=== PATIENT | male | born 1985 | race Two or more races ===

== ENCOUNTER 2017-10-25 20:56 | Emergency (ER) | payer SELFPAY | END 2017-10-25 23:20 | disposition left against medical advice (07) | LOC: ER 20:56 | DX: R10.9 Unspecified abdominal pain (principal); Z53.21 Procedure and treatment not carried out due to patient leaving prior to being seen by health care provider ==

== ENCOUNTER 2019-10-22 21:32 | Emergency (ER) | payer SELFPAY ==
[~2019-10-22] VITALS: Ht 165.1 cm; Wt 83.2 kg
[2019-10-22 21:38] VITALS: BP 132/95
--- NOTE | 2019-10-22 22:32 | RAD ---
Three-view right knee HISTORY: Pain AP lateral oblique views The patella is high riding. There is soft tissue edema anteriorly. The visualized osseous structures appear normal. IMPRESSION: High riding patella and soft tissue edema anteriorly. Correlate for possible patellar tendon injury. No acute bony abnormality identified. Electronically signed by: Theo Hinds III, MD (10/22/2019 10:29 PM) [id number]
[2019-10-22 22:33] LABS: BASO % 1 % (0-3); EOS # 0.1 x10^3/uL (0.0-0.7); EOS % 2 % (0-3); HEMATOCRIT 42.8 % (39.0-53.0); HEMOGLOBIN 15.2 g/dL (13.0-17.5); LYMPH # 1.3 x10^3/uL (1.0-4.8); LYMPH % 20 % (24-48); MEAN CORPUSCULAR HEMOGLOBIN 31 pg (25-35); MEAN CORPUSCULAR HGB CONC 36 g/dL (31-37); MEAN CORPUSCULAR VOLUME 87 fL (79-100); MONO # 0.4 x10^3/uL (0.0-1.1); MONO % 6 % (0-9); NEUT # 4.6 x10^3/uL (1.8-7.7); NEUT % 72 % (31-73); PLATELET COUNT 136 x10^3/uL (140-400); RED BLOOD COUNT 4.94 x10^6/uL (4.30-5.70); RED CELL DISTRIBUTION WIDTH 12.8 % (11.5-14.5); WHITE BLOOD COUNT 6.3 x10^3/uL (4.0-11.0)
[2019-10-22 22:44] LABS: CALCIUM 8.6 mg/dL (8.5-10.1); CREATININE 0.9 mg/dL (0.7-1.3); POTASSIUM 4.4 mmol/L (3.5-5.1)
[2019-10-22 22:47] LABS: ALBUMIN/GLOBULIN RATIO 1.2 (1.0-1.7); C-REACTIVE PROTEIN 5.3 mg/L (0-3.3); TOTAL BILIRUBIN 0.5 mg/dL (0.2-1.0); TOTAL PROTEIN 7.4 g/dL (6.4-8.2)
--- NOTE | 2019-10-22 22:55 | PHYS DOC ---
Past Medical History Past Medical History: No Pertinent History Past Surgical History: No Surgical History Smoking Status: Never Smoker Alcohol Use: Occasionally General Adult EDM: Chief Complaint: LOWER EXT PAIN HPI: HPI: Patient is a 33 year old male presenting to the ED with a chief complaint of tenderness to his right knee. Patient denies obvious injury. Patient states that tonight he put ice on his right knee due to the pain. Patient is able to have normal range of motion. Patient does not complain of any pain when he puts weight on his right knee. Patient does complain of mild warmth to the knee area. Patient denies fevers, chills, nausea, vomiting, chest pain, shortness of breath. Review of Systems: Review of Systems: Constitutional: Denies fever or chills. [] Eyes: Denies change in visual acuity. [] HENT: Denies nasal congestion or sore throat. [] Respiratory: Denies cough or shortness of breath. [] Cardiovascular: Denies chest pain or edema. [] GI: Denies abdominal pain, nausea, vomiting, bloody stools or diarrhea. [] Musculoskeletal: Complains of warmth to his right knee. [] Neurologic: Denies headache, focal weakness or sensory changes. [] Heart Score: Risk Factors: Risk Factors: DM, Current or recent (<one month) smoker, HTN, HLP, family history of CAD, obesity. Risk Scores: Score 0 - 3: 2.5% MACE over next 6 weeks - Discharge Home Score 4 - 6: 20.3% MACE over next 6 weeks - Admit for Clinical Observation Score 7 - 10: 72.7% MACE over next 6 weeks - Early Invasive Strategies Allergies: Allergies: Allergies Coded Allergies Type Severity Reaction Last Updated Verified No Known Drug Allergies 10/22/19 No Physical Exam: PE: Constitutional: Well developed, well nourished, no acute distress, non-toxic ap pearance. [] HENT: Normocephalic, atraumatic Eyes: EOMI Neck: Normal range of motion, Supple Respiratory: No respiratory distress Extremities: No tenderness, ROM intact, mild erythema and warmth to the right knee, neurovascularly intact in the right lower extremity Neurologic: Alert and oriented X 3 Current Patient Data: Labs: Laboratory Tests Test 10/22/19 22:23 White Blood Count 6.3 x10^3/uL (4.0-11.0) Red Blood Count 4.94 x10^6/uL (4.30-5.70) Hemoglobin 15.2 g/dL (13.0-17.5) Hematocrit 42.8 % (39.0-53.0) Mean Corpuscular Volume 87 fL (79-100) Mean Corpuscular Hemoglobin 31 pg (25-35) Mean Corpuscular Hemoglobin Concent 36 g/dL (31-37) Red Cell Distribution Width 12.8 % (11.5-14.5) Platelet Count 136 x10^3/uL (140-400) L Neutrophils (%) (Auto) 72 % (31-73) Lymphocytes (%) (Auto) 20 % (24-48) L Monocytes (%) (Auto) 6 % (0-9) Eosinophils (%) (Auto) 2 % (0-3) Basophils (%) (Auto) 1 % (0-3) Neutrophils # (Auto) 4.6 x10^3/uL (1.8-7.7) Lymphocytes # (Auto) 1.3 x10^3/uL (1.0-4.8) Monocytes # (Auto) 0.4 x10^3/uL (0.0-1.1) Eosinophils # (Auto) 0.1 x10^3/uL (0.0-0.7) Basophils # (Auto) 0.0 x10^3/uL (0.0-0.2) Sodium Level 142 mmol/L (136-145) Potassium Level 4.4 mmol/L (3.5-5.1) Chloride Level 104 mmol/L (98-107) Carbon Dioxide Level 27 mmol/L (21-32) Anion Gap 11 (6-14) Blood Urea Nitrogen 14 mg/dL (8-26) Creatinine 0.9 mg/dL (0.7-1.3) Estimated GFR (Cockcroft-Gault) 96.0 BUN/Creatinine Ratio 16 (6-20) Glucose Level 150 mg/dL (70-99) H Calcium Level 8.6 mg/dL (8.5-10.1) Total Bilirubin 0.5 mg/dL (0.2-1.0) Aspartate Amino Transferase (AST) 27 U/L (15-37) Alanine Aminotransferase (ALT) 34 U/L (16-63) Alkaline Phosphatase 74 U/L (46-116) C-Reactive Protein, Quantitative 5.3 mg/L (0-3.3) H Total Protein 7.4 g/dL (6.4-8.2) Albumin 4.0 g/dL (3.4-5.0) Albumin/Globulin Ratio 1.2 (1.0-1.7) Laboratory Tests 10/22/19 22:23 Laboratory Tests 10/22/19 22:23 Vital Signs: Vital Signs Date Time Temp Pulse Resp B/P (MAP) Pulse Ox O2 Delivery O2 Flow Rate FiO2 10/22/19 21:38 98.2 93 18 132/95 (107) 99 Room Air 98.2 EKG: EKG: [] Radiology/Procedures: Radiology/Procedures: [] Impression: RIght Knee Xray IMPRESSION: High riding patella and soft tissue edema anteriorly. Correlate for possible patellar tendon injury. No acute bony abnormality identified. Course & Med Decision Making: Course & Med Decision Making Pertinent Labs and Imaging studies reviewed. (See chart for details) X-ray shows possible injury to the patella tendon. Labs do not show leukocytosis. I discussed results and plan of care with patient. Patient to call orthopedic surgeon in the morning. Discussed results and plan of care with patient. Patient is instructed to follow up with PCP in one to 2 days. Appropriate discharge instructions given to patient to return to the ED or to seek immediate medical evaluation. Patient is instructed to return to the ED if symptoms worsen or if any concerns. Dragon Disclaimer: Dragon Disclaimer: This electronic medical record was generated, in whole or in part, using a voice recognition dictation system. Departure Departure Impression: Primary Impression: Knee bursitis Disposition: 01 HOME, SELF-CARE Condition: STABLE Referrals: NO PCP (PCP) BELKYS KIM II, MD Please call tomorrow morning Patient Instructions: Bursitis, [id number], Knee - Cartilage (Meniscus) Injury, Knee - Meniscus Injury, Arthroscopy, Care After Additional Instructions: Please follow-up with orthopedic surgeon tomorrow morning. Please return to ED if symptoms worsen or if any concerns. Please follow-up with PCP in 1 to 2 days. Justicifation of Admission Dx: Justifications for Admission: Justification of Admission Dx: No ELIZABETH LYNN DO Oct 22, 2019 22:55
== END 2019-10-22 23:42 | disposition home or self-care (01) ==
LOC: ER 21:32
DX: M70.51 Other bursitis of knee, right knee (principal); L53.9 Erythematous condition, unspecified
CPT/HCPCS: 36415; 73562; 80053; 85025; 86140; 99284

== ENCOUNTER 2020-09-20 22:17 | Emergency (ER) | payer SELFPAY ==
[~2020-09-20] VITALS: Ht 162.6 cm; Wt 82.0 kg
[2020-09-20 23:50] VITALS: BP 160/92
[2020-09-21] MEDS ORDERED: cefTRIAXone IV Push 1 GM VIAL. IVP ONE (00:15)
[2020-09-21] MEDS ORDERED: CEPH500T PO (00:19)
--- NOTE | 2020-09-21 00:19 | PHYS DOC ---
Past Medical History Past Medical History: No Pertinent History Past Surgical History: No Surgical History Smoking Status: Never Smoker Alcohol Use: Occasionally General Adult EDM: Chief Complaint: INSECT BITE HPI: HPI: Patient is a 34 year old 34-year-old male presents to the emergency department complaining of a insect bite to his left thigh. States he was bit last Saturday, and noticed it was getting redder and infected looking. Patient states he has had a medical evaluation of this bite, patient denies any recent fever or chills, denies headaches or other skin rashes. Denies chest pain or shortness of breath. Patient denies any visual disturbances or neurological deficits. Patient denies a surgical history, states he has no allergies to medications, states he takes no prescription medications at home. Patient states he does not smoke cigarettes, drinks alcohol occasionally on the weekends, does not use any illicit drugs. Review of Systems: Review of Systems: 14 body systems of review of systems have been reviewed. See HPI for pertinent positives and negative responses, otherwise all other systems are negative, nonpertinent or noncontributory. Heart Score: C/O Chest Pain: No Risk Factors: Risk Factors: DM, Current or recent (<one month) smoker, HTN, HLP, family history of CAD, obesity. Risk Scores: Score 0 - 3: 2.5% MACE over next 6 weeks - Discharge Home Score 4 - 6: 20.3% MACE over next 6 weeks - Admit for Clinical Observation Score 7 - 10: 72.7% MACE over next 6 weeks - Early Invasive Strategies Allergies: Allergies: Allergies Coded Allergies Type Severity Reaction Last Updated Verified No Known Drug Allergies 10/22/19 No Physical Exam: PE: Constitutional: Well developed, well nourished, no acute distress, non-toxic appearance. 34-year-old male no apparent distress. HENT: Normocephalic, atraumatic, bilateral external ears normal, oropharynx moist, no oral exudates, nose normal. Eyes: PERRLA, EOMI, conjunctiva normal, no discharge. Neck: Normal range of motion, no tenderness, supple, no stridor. No meningismus signs, no nuchal rigidity appreciated. Cardiovascular:Heart rate regular rhythm, no murmur Lungs & Thorax: Bilateral breath sounds clear to auscultation no adventitious lung sounds appreciated Abdomen: Bowel sounds normal, soft, no tenderness, no masses, no pulsatile masses. Skin: Warm, dry, no erythema, no rash. See extremity note. Back: No tenderness, no CVA tenderness. Extremities: No tenderness, no cyanosis, no clubbing, ROM intact, no edema. Except for left thigh, patient has 10 cm induration erythema with poor demarcated borders, central punctum eschar in appearance 1 cm in diameter. No drainage from central punctum. No loss of sensation distally, no swelling of left lower extremity, 2+ dorsalis pedis/posterior tibial pulse. Distal cap refill less than 2 seconds. Neurologic: Alert and oriented X 3, normal motor function, normal sensory function, no focal deficits noted. Psychologic: Affect normal, judgement normal, mood normal. EKG: EKG: [] Radiology/Procedures: Radiology/Procedures: [] Course & Med Decision Making: Course & Med Decision Making Pertinent Labs and Imaging studies reviewed. (See chart for details) 34-year-old male, vital signs reviewed, presents to the emergency department concerning an insect bite to his left thigh. Physical examination concerning for cellulitis of left thigh with central punctum most likely from insect bite. Will start IV Ancef 2 g. Discussed with patient admission to hospital, patient reports he would like to trial antibiotic treatment at home. Discussed with patient will draw yurok around induration area to monitor cellulitis progression. Patient states he will have his monitor the infected area as he cannot visualize it related to its placement on his left inner rear thigh. Discussed with patient will start on Keflex p.o. 4 times a day x7 days. Discussed with patient strict return to ER precautions if cellulitic infection worsening must return immediately for admission to hospital. The patient's tetanus status was brought up-to-date today in the emergency department. Patient gave verbal understanding of discharge home instructions, strict return to emergency department precautions and concerns, home antibiotic use, follow-up with primary care for wound recheck, patient had no further questions or concerns and was discharged home without incident. Manuelito Disclaimer: Manuelito Disclaimer: This electronic medical record was generated, in whole or in part, using a voice recognition dictation system. Departure Departure Impression: Primary Impression: Cellulitis of left lower limb Disposition: HOME / SELF CARE / HOMELESS Condition: GOOD Referrals: NO PCP (PCP) EUGENIA VENTURA MD Patient Instructions: Cellulitis Additional Instructions: You have been seen today for an insect bite of your left inner thigh. This insect bite has caused a cellulitis type infection. You were treated in the emergency department with IV antibiotics. I have prescribed for you oral antibiotics to take at home, you will take them 4 times a day for the next 7 days. We have marked the infected area with a pen, please have your monitor closely each day to ensure the infection is not worsening. If the infection is worsening, the oral antibiotics I have prescribed are not working, you must return to the emergency department immediately for admission to hospital. Please follow-up with a primary care physician for reevaluation of this infectious wound. If you are unable to secure an appointment with your own physician, I have provided you a referral physician to follow-up with. Please return to the emergency department for worsening symptoms or other concerns. EMERGENCY DEPARTMENT GENERAL DISCHARGE INSTRUCTIONS Thank you for coming to [facility] Emergency Department (ED) today and trusting us with you care. We trust that you had a positive experience in our Emergency Department. If you wish to speak to the department management, you may call the Director at [phone]. YOUR FOLLOW UP INSTRUCTIONS ARE FOLLOWS: 1. Do you have a private Doctor? If you do not have a private doctor, please ask for a resource list of physicians or clinics that may be able to assist you with follow up care. 2. The Emergency Physicain has interpreted your x-rays. The X-Ray specialist will also review them. If there is a change in the findings, you will be notified in 48 hours when at all possible. 3. A lab test or culture has been done, your results will be reviewed and you will be notified if you need a change in treatment. ADDITIONAL INSTRUCTIONS AND INFORMATION: 1. Your care today has been supervised by a physician who is specially trained in emergency care. Many problems require more than one evaluation for a complete diagnosis and treatment. We recommend that you schedule your follow up appointment as recommended to ensure complete treatment of you illness or injury. If you are unable to obtain follow up care and continue to have a problem, or if your condition worsens, we recommend that you return to the ED. 2. We are not able to safely determine your condition over the phone nor are we able to give sound medical advice over the phone. For these safety reasons, if you call for medical advice we will ask you to come to the ED for further evaluation. 3. If you have any questions regarding these discharge instructions please call the ED at [phone]. SAFETY INFORMATION: In the interest of safety, wellness, and injury prevention; we encourage you to wear your sealbelt, if you smoke; quite smoking, and we encourage family to use a protective helmet for bicycling and other sporting events that present an increased risk for head injury. IF YOUR SYMPTOMS WORSEN OR NEW SYMPTOMS DEVELOP, OR YOU HAVE CONCERNS ABOUT YOUR CONDITION; OR IF YOUR CONDITION WORSENS WHILE YOU ARE WAITING FOR YOUR FOLLOW UP APPOINTMENT; EITHER CONTACT YOUR PRIMARY CARE DOCTOR, THE PHYSICIAN WHOSE NAME AND NUMBER YOU WERE GIVEN, OR RETURN TO THE ED IMMEDIATELY. Scripts Cephalexin (CEPHALEXIN) 500 Mg Tablet 1 TAB PO QID for SKIN INFECTION for 7 Days, #28 TAB 0 Refills Prov: VIK GARCIA APRN 09/21/20 VIK GARCIA APRN September 21, 2020 00:19
[2020-09-21] MEDS ORDERED: DIPH,PERTUSS(ACELL),TET VAC/PF 0.5 ML SYRINGE. VAX IM ONE (00:30)
== END 2020-09-21 03:03 | disposition home or self-care (01) ==
LOC: ER 22:17
DX: S70.362A Insect bite (nonvenomous), left thigh, initial encounter (principal); L03.116 Cellulitis of left lower limb; W57.XXXA Bitten or stung by nonvenomous insect and other nonvenomous arthropods, initial encounter; Y93.89 Activity, other specified; Y92.89 Other specified places as the place of occurrence of the external cause; Y99.8 Other external cause status
CPT/HCPCS: 90471; 90715; 96365; 99285; J0690

== ENCOUNTER 2020-10-17 12:32 | Emergency (ER) | payer SELFPAY ==
[~2020-10-17] VITALS: Ht 162.6 cm; Wt 81.8 kg
[~2020-10-17 12:32] MED LIST: CEPH500T PO
[2020-10-17 13:50] VITALS: BP 143/91
--- NOTE | 2020-10-17 14:46 | RAD ---
XR HAND_RIGHT 3 VIEWS Clinical indications: Reason: RED/SWOLLEN x5DAY, LAC FROM GRANITE x4 WKS AGO / Spl. Instructions: / History: Findings: No acute fracture or dislocation or osteolytic process is evident. Impression: No acute osseous abnormality is evident. There is soft tissue swelling most prominent wi thin the webspace between the first and second metacarpal bones. No soft tissue air or radiopaque for eign body is evident. Electronically signed by: Humphrey Ahmadi MD (10/17/2020 2:43 PM) [id number]
--- NOTE | 2020-10-17 14:50 | ED.ADGEN ---
Past Medical History Past Medical History: No Pertinent History Past Surgical History: No Surgical History Smoking Status: Never Smoker Alcohol Use: Occasionally General Adult EDM: Chief Complaint: UPPER EXTREMITY INJURY HPI: HPI: Patient is a 34 year old male who presents emergency department with complaints of redness and swelling to his right hand for the last 4 to 5 days. He reports that about 4 months ago he had cut the hand in the same area while cutting something in it. Patient states that his last tetanus shot was less than 5 years ago. He denies any decreased sensation, fever, or drainage from the incision. He denies any decreased sensation, numbness, or tingling of the affected area. Patient states he is having difficulty bending and straightening his right index finger now he denies any pain radiating to his right wrist. He currently rates the pain a 6/10 on the pain scale, the pain increases to a 10 out of 10 with movement and palpation. Review of Systems: Review of Systems: Complete ROS is negative unless otherwise noted in HPI. Allergies: Allergies: Allergies Coded Allergies Type Severity Reaction Last Updated Verified No Known Drug Allergies 10/22/19 No Physical Exam: PE: See Above Constitutional: Well developed, well nourished, no acute distress, non-toxic appearance. [] HENT: Normocephalic, atraumatic, bilateral external ears normal, nose normal. [] Eyes: PERRLA, EOMI, conjunctiva normal, no discharge. [] Neck: Normal range of motion, no stridor. [] Cardiovascular:Heart rate regular rhythm Lungs & Thorax: Respirations even and unlabored, no retractions, no respiratory distress Skin: Warm, dry; indurated erythemic, warm skin to the right hand between the first and second digits affecting the volar and dorsal surfaces, no fluctuance, no visible pustule, healed laceration to the volar aspect in the same area. Extremities: Right hand: No bony tenderness to palpation or deformity, no cyanosis, ROM limited due to swelling, 2+ edema to the first and second digits Neurologic: Alert and oriented X 3, normal sensory, no focal deficits noted. [] Psychologic: Affect normal, judgement normal, mood normal. [] EKG: EKG: [] Heart Score: C/O Chest Pain: No Risk Scores: Score 0 - 3: 2.5% MACE over next 6 weeks - Discharge Home Score 4 - 6: 20.3% MACE over next 6 weeks - Admit for Clinical Observation Score 7 - 10: 72.7% MACE over next 6 weeks - Early Invasive Strategies Radiology/Procedures: Radiology/Procedures: PROCEDURE: HAND RIGHT 3V XR HAND_RIGHT 3 VIEWS Clinical indications: Reason: RED/SWOLLEN x5DAY, LAC FROM GRANITE x4 WKS AGO / Spl. Instructions: / History: Findings: No acute fracture or dislocation or osteolytic process is evident. Impression: No acute osseous abnormality is evident. There is soft tissue swelling most prominent within the webspace between the first and second metacarpal bones. No soft tissue air or radiopaque foreign body is evident. Electronically signed by: Humphrey Ahmadi MD (10/17/2020 2:43 PM) [id number] [] Course & Med Decision Making: Course & Med Decision Making Pertinent Labs and Imaging studies reviewed. (See chart for details) [] Dragon Disclaimer: Dragon Disclaimer: This electronic medical record was generated, in whole or in part, using a voice recognition dictation system. Departure Departure Impression: Primary Impression: Cellulitis of hand, right Additional Impression: Laceration of right hand with infection Disposition: HOME / SELF CARE / HOMELESS Condition: STABLE Referrals: NO PCP (PCP) Patient Instructions: Cellulitis, [id number] Additional Instructions: Fill the prescription(s) and use as directed. Continue taking 600 to 800 mg of ibuprofen every 6-8 hours as needed for pain. Apply warm, moist packs to the area to help decrease discomfort. Follow up with your primary care doctor or return to the ER in 48 hours to have wound rechecked. Return to the ER sooner if your symptoms worsen or fever develops. Scripts Hydrocodone Bit/Acetaminophen (HYDROCODONE-APAP 5-325 ) 1 Tab Tablet 1 TAB PO PRN Q6HRS PRN for PAIN for 3 Days, #10 TAB 0 Refills Prov: ALFRED JIMENEZ APRN 10/17/20 Sulfamethoxazole/Trimethoprim (BACTRIM DS TABLET) 1 Each Tablet 1 TAB PO BID for 10 Days, #20 TAB 0 Refills Prov: ALFRED JIMENEZ APRN 10/17/20 Cephalexin (CEPHALEXIN) 500 Mg Tablet 1 TAB PO QID, #40 TAB 0 Refills Prov: ALFRED JIMENEZ OFFICE SUPPORT SPECIALIST 10/17/20 Problem Qualifiers Additional Impression: Laceration of right hand with infection Encounter type: initial encounter Qualified Codes: S61.411A - Laceration without foreign body of right hand, initial encounter; L08.9 - Local infe ction of the skin and subcutaneous tissue, unspecified ALFRED JIMENEZ OFFICE SUPPORT SPECIALIST October 17, 2020 14:50
[2020-10-17] MEDS ORDERED: CEPH500T PO (15:15)
[2020-10-17] MEDS ORDERED: SULF1TAB24 PO (15:15)
[2020-10-17] MEDS ORDERED: HYDR-2761 PO (15:15)
== END 2020-10-17 15:26 | disposition home or self-care (01) ==
LOC: ER 12:32
DX: S61.411A Laceration without foreign body of right hand, initial encounter (principal); L03.113 Cellulitis of right upper limb; W26.8XXA Contact with other sharp object(s), not elsewhere classified, initial encounter; Y93.89 Activity, other specified; Y92.89 Other specified places as the place of occurrence of the external cause; Y99.8 Other external cause status
CPT/HCPCS: 73130; 99283

== ENCOUNTER 2020-12-31 10:42 | Inpatient (IN) | payer SELFPAY ==
[~2020-12-31] VITALS: Ht 162.6 cm; Wt 84.0 kg
[~2020-12-31 10:42] MED LIST changes: +HYDR-2761 PO; +SULF1TAB24 PO
--- NOTE | 2020-12-31 11:03 | PHYS DOC ---
Past Medical History Past Medical History: No Pertinent History Past Surgical History: No Surgical History Smoking Status: Never Smoker Alcohol Use: Occasionally General Adult EDM: Chief Complaint: LOWER EXTREMITY SWELLING HPI: HPI: Patient is a 35 year old male with no significant medical history who presents to the ED today complaining of redness and swelling on the left knee all the to left anterior leg, symptoms began yesterday. Patient denies any injuries. Denies any fever, denies any nausea vomiting. Review of Systems: Review of Systems: Constitutional: Denies fever or chills. [] Eyes: Denies change in visual acuity. [] HENT: Denies nasal congestion or sore throat. [] Respiratory: Denies cough or shortness of breath. [] Cardiovascular: Denies chest pain or edema. [] GI: Denies abdominal pain, nausea, vomiting, bloody stools or diarrhea. [] : Denies dysuria. [] Musculoskeletal: Denies back pain or joint pain. [] Integument: Reports left anterior leg redness and swelling Neurologic: Denies headache, focal weakness or sensory changes. [] Psychiatric: Denies depression or anxiety. [] Heart Score: C/O Chest Pain: N/A Risk Factors: Risk Factors: DM, Current or recent (<one month) smoker, HTN, HLP, family history of CAD, obesity. Risk Scores: Score 0 - 3: 2.5% MACE over next 6 weeks - Discharge Home Score 4 - 6: 20.3% MACE over next 6 weeks - Admit for Clinical Observation Score 7 - 10: 72.7% MACE over next 6 weeks - Early Invasive Strategies Allergies: Allergies: Allergies Coded Allergies Type Severity Reaction Last Updated Verified No Known Drug Allergies 10/22/19 No Physical Exam: PE: Constitutional: Well developed, well nourished, no acute distress, non-toxic appearance. [] HENT: Normocephalic, atraumatic, bilateral external ears normal, oropharynx moist, no oral exudates, nose normal. [] Eyes: PERRLA, EOMI, conjunctiva normal, no discharge. [] Neck: Normal range of motion, no tenderness, supple, no stridor. [] Cardiovascular:Heart rate regular rhythm, no murmur [] Lungs & Thorax: Bilateral breath sounds clear to auscultation [] Abdomen: Bowel sounds normal, soft, no tenderness, no masses, no pulsatile mas ses. [] Skin: Left anterior knee below the patellar with isolated area of swelling that is not flactuance. Redness noted from the anterior lower extremity, most of the redness is contained on the walker of the left leg, with warmth to the red areas the walker and knee. Full range of motion to the left knee and ankle. Negative Jose sign, negative Lucien sign, negative anterior posterior drawer sign. +2 left pedal pulse. Cap refill less than 2 seconds in left lower extremity. Negative Homans' sign to the left lower extremity. Back: No tenderness, no CVA tenderness. [] Extremities: No tenderness, no cyanosis, no clubbing, ROM intact, no edema. [] Neurologic: Alert and oriented X 3, normal motor function, normal sensory function, no focal deficits noted. [] Psychologic: Affect normal, judgement normal, mood normal. [] EKG: EKG: [] Radiology/Procedures: Radiology/Procedures: []PROCEDURE: KNEE LEFT 4V INDICATION: Reason: pain redness / Spl. Instructions: / History: COMPARISON: None. IMPRESSION: Left knee: 4 views obtained. There is some soft tissue swelling including in the prepatellar region as well as anterior to the patellar tendon. No acute fracture or dislocation. Mild edema at Hoffa's fat pad. Electronically signed by: Bouchra Layton MD (12/31/2020 11:26 AM) [id number] DICTATED and SIGNED BY: BOUCHRA LAYTON MD DATE: 12/31/20 [id number] PROCEDURE: VENOUS LOWER EXTREMITY LEFT Left Lower Extremity Venous Doppler: Reason for examination: Left lower extremity swelling and redness. The left lower extremity venous system was evaluated from the common femoral and greater saphenous veins distally to the calf veins with grayscale imaging, color-flow imaging and spectral analysis. There is normal blood flow without deep venous thrombosis. There is normal re sponse of the venous systems to compression and augmentation. Impression: No deep venous thrombosis in the left lower extremity venous system. Electronically signed by: Helder Melara MD (12/31/2020 11:32 AM) [id number] DICTATED and SIGNED BY: HELDER MELARA MD DATE: 12/31/20 [id number] Course & Med Decision Making: Course & Med Decision Making Pertinent Labs and Imaging studies reviewed. (See chart for details) This is a 35-year-old male patient presented to the ED today with swelling and redness from the knee to the left lower extremity. Left knee x-rays interpreted by radiologist were noted for soft tissue swelling including in the prepatellar region as well as anterior to the patellar tendon. No acute fracture or dislocation. Mild edema at Hoffa's fat pad. Venous Doppler of the left lower extremity is negative Vitals on arrival to the ED temperature 99.4, heart rate 105, respiration 18, blood pressure 149/92, O2 sats 96% on room air. CBC with a normal WBC, sed rate 20, CRP 164.0, glucose 230 with a normal anion gap. No previous history of diabetes. No previous history of hypertension. Spoke to Dr. Muse who requested we admit patient and start him on antibiotics. Patient was given Zosyn and vancomycin in the ED. Spoke with Dr. Gary who accepted patient for admission Dr. Zee evaluated patient. Manuelito Disclaimer: Manuelito Disclaimer: This electronic medical record was generated, in whole or in part, using a voice recognition dictation system. Departure Departure Impression: Primary Impression: Left leg cellulitis Additional Impressions: Cellulitis of left knee Diabetes mellitus Qualified Codes: E11.69 - Type 2 diabetes mellitus with other specified complication Disposition: ADMITTED INPATIENT Condition: STABLE Referrals: NO PCP (PCP) NORTH BRUNO APRN Dec 31, 2020 11:03
--- NOTE | 2020-12-31 11:28 | RAD ---
INDICATION: Reason: pain redness / Spl. Instructions: / History: COMPARISON: None. IMPRESSION: Left knee: 4 views obtained. There is some soft tissue swelling including in the prepatellar region a s well as anterior to the patellar tendon. No acute fracture or dislocation. Mild edema at Hoffa's fa t pad. Electronically signed by: Ranjit Willis MD (12/31/2020 11:26 AM) [id number]
--- NOTE | 2020-12-31 11:34 | RAD ---
Left Lower Extremity Venous Doppler: Reason for examination: Left lower extremity swelling and redness. The left lower extremity venous system was evaluated from the common femoral and greater saphenous ve ins distally to the calf veins with grayscale imaging, color-flow imaging and spectral analysis. There is normal blood flow without deep venous thrombosis. There is normal response of the venous sys tems to compression and augmentation. Impression: No deep venous thrombosis in the left lower extremity venous system. Electronically signed by: Lydia Leos MD (12/31/2020 11:32 AM) [id number]
[2020-12-31] MEDS ORDERED: ACETAMINOPHEN 500 MG TABLET PO ONE (11:45)
[2020-12-31] MEDS: IV NORMAL SALINE 1000ML BAG 1,000 ML IV SCH ×2 (12:18→13:07)
[2020-12-31 12:29] LABS: BASO % 0 % (0-3); EOS % 0 % (0-3); HEMATOCRIT 38.6 % (39.0-53.0); HEMOGLOBIN 13.7 g/dL (13.0-17.5); LYMPH # 1.1 x10^3/uL (1.0-4.8); LYMPH % 11 % (24-48); MEAN CORPUSCULAR HEMOGLOBIN 31 pg (25-35); MEAN CORPUSCULAR HGB CONC 36 g/dL (31-37); MEAN CORPUSCULAR VOLUME 87 fL (79-100); MONO # 0.6 x10^3/uL (0.0-1.1); MONO % 6 % (0-9); NEUT # 8.4 x10^3/uL (1.8-7.7); NEUT % 83 % (31-73); PLATELET COUNT 107 x10^3/uL (140-400); RED BLOOD COUNT 4.44 x10^6/uL (4.30-5.70); RED CELL DISTRIBUTION WIDTH 13.9 % (11.5-14.5); WHITE BLOOD COUNT 10.2 x10^3/uL (4.0-11.0)
[2020-12-31 12:41] LABS: CALCIUM 8.9 mg/dL (8.5-10.1); CREATININE 0.9 mg/dL (0.7-1.3); POTASSIUM 3.5 mmol/L (3.5-5.1)
[2020-12-31 12:54] LABS: ALBUMIN 3.6 g/dL (3.4-5.0); TOTAL BILIRUBIN 0.6 mg/dL (0.2-1.0); TOTAL PROTEIN 7.3 g/dL (6.4-8.2)
[2020-12-31] MEDS ORDERED: VANCOMYCIN PER PHARMACY MC STA (13:51)
[2020-12-31] MEDS ORDERED: VANCOMYCIN 2 GM in IV NORMAL SALINE 500ML BAG 500 ML IV ONE (14:00)
[2020-12-31] MEDS ORDERED: PIPERACILLIN/TAZOBACTAM 3.375 GM in IV NORMAL SALINE 50ML 50 ML IV ONE (14:00)
[2020-12-31] MEDS ORDERED: PROCHLORPERAZINE 10 MG/2 ML VIAL. IV PRN (14:15)
[2020-12-31] MEDS ORDERED: DOCUSATE SODIUM 100 MG CAPSULE. PO PRN (14:15)
[2020-12-31] MEDS ORDERED: SENNOSIDES 8.6 MG TABLET PO PRN (14:15)
[2020-12-31] MEDS ORDERED: ONDANSETRON PF 4 MG/2 ML VIAL. IVP PRN ×2 (14:15→14:45)
[2020-12-31] MEDS ORDERED: VANCOMYCIN PER PHARMACY MC PRN (14:15)
[2020-12-31] MEDS ORDERED: DEXTROSE 50% 25 GM / 50ML DISP.SYRIN. IV PRN (14:15)
[2020-12-31] MEDS ORDERED: oxyCODONE/APAP 5/325 1 TAB TABLET PO PRN (14:15)
[2020-12-31] MEDS ORDERED: ACETAMINOPHEN 325 MG TABLET. PO PRN ×2 (14:15→14:45)
[2020-12-31] MEDS ORDERED: MORPHINE SULFATE 2 MG/ML INJ. IVP PRN (14:45)
--- NOTE | 2020-12-31 14:52 | PDOC1 ---
History and Physical Date of Service: DOS: DATE: 12/31/20 TIME: 14:49 Chief Complaint: Chief Complain: Knee pain History of Present Illness: HPI: 35-year-old male with no significant known past medical history who presents with left knee pain that started on Saturday and the redness that started last night. Patient states denies any trauma or falls. He has never had any incident like this before. The pain is focused in the anterior patellar region. There are no deformities or swelling that he claims. However there is swelling and redness that tracks down from the knee down to the ankles. Of note, patient states that he did bump his knee on a trampoline several years back. 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 He was on his knees a lot for his job without any wearing kneepads. However he has not worked that job for a long time. Denies fevers, chest pain, diarrhea, dysuria or abdominal pains. Past Medical/Surgical History: PMH/PSH: No significant past medical or surgical history. Allergies: Allergies: Coded Allergies: No Known Drug Allergies (Unverified , 10/22/19) Family History: Family History: Reviewed with no relevant findings Social History: Social History: Denies alcohol, tobacco or drug abuse. Current Medications: Current Medications Current Medications Sodium Chloride 1,000 ml @ 1,770 mls/hr Q34M IV Last administered on 12/31/20at 13:07; Start 12/31/20 at 11:45; Stop 12/31/20 at 12:45; Status DC Acetaminophen (Tylenol) 1,000 mg 1X ONCE PO Last administered on 12/31/20at 12:17; Start 12/31/20 at 11:45; Stop 12/31/20 at 11:46; Status DC Piperacillin Sod/ Tazobactam Sod 3.375 gm/Sodium Chloride 50 ml @ 100 mls/hr 1X ONCE IV Last administered on 12/31/20at 14:08; Start 12/31/20 at 14:00; Stop 12/31/20 at 14:29; Status DC Vancomycin HCl (Vanco Per Pharmacy) 1 each PRN DAILY STAT ; Start 12/31/20 at 13:51; Stop 12/31/20 at 13:55; Status DC Vancomycin HCl 2 gm/Sodium Chloride 500 ml @ 250 mls/hr 1X ONCE IV Last administered on 12/31/20at 14:41; Start 12/31/20 at 14:00; Stop 12/31/20 at 15:59 Vancomycin HCl (Vanco Per Pharmacy) 1 each PRN DAILY PRN MC SEE COMMENTS; Start 12/31/20 at 14:15; Status UNV Sennosides (Senna) 17.2 mg PRN BID PRN PO CONSTIPATION; Start 12/31/20 at 14:15 Docusate Sodium (Colace) 100 mg PRN DAILY PRN PO HARD STOOLS; Start 12/31/20 at 14:15 Ondansetron HCl (Zofran) 4 mg PRN Q6HRS PRN IVP NAUSEA/VOMITING; Start 12/31/20 at 14:15 Insulin Human Lispro (HumaLOG) 0-7 UNITS TIDWMEALS SQ ; Start 12/31/20 at 17:00 Dextrose (Dextrose 50%-Water Syringe) 12.5 gm PRN Q15MIN PRN IV SEE COMMENTS; Start 12/31/20 at 14:15 Acetaminophen (Tylenol) 650 mg PRN Q4HRS PRN PO TEMP OVER 100.4F OR MILD PAIN; Start 12/31/20 at 14:15 Oxycodone/ Acetaminophen (Percocet 5/325) 1 tab PRN Q4HRS PRN PO MILD PAIN, 1ST CHOICE; Start 12/31/20 at 14:15 Prochlorperazine Edisylate (Compazine) 10 mg PRN Q6HRS PRN IV NAUSEA/VOMITING; Start 12/31/20 at 14:15 Ondansetron HCl (Zofran) 4 mg PRN Q8HRS PRN IVP NAUSEA/VOMITING; Start 12/31/20 at 14:45; Stop 01/01/21 at 14:44 Morphine Sulfate (Morphine Sulfate) 2 mg PRN Q2HR PRN IVP PAIN; Start 12/31/20 at 14:45; Stop 01/01/21 at 14:44 Acetaminophen (Tylenol) 650 mg PRN Q4HRS PRN PO FEVER > 100.3'F; Start 12/31/20 at 14:45; Stop 01/01/21 at 14:44 Active Scripts Active Hydrocodone-Apap 5-325 (Hydrocodone Bit/Acetaminophen) 1 Tab Tablet 1 Tab PO PRN Q6HRS PRN 3 Days Bactrim Ds Tablet (Sulfamethoxazole/Trimethoprim) 1 Each Tablet 1 Tab PO BID 10 Days Cephalexin 500 Mg Tablet 1 Tab PO QID Cephalexin 500 Mg Tablet 1 Tab PO QID 7 Days ROS: Review of Systems Review of System REVIEW OF SYSTEMS: GENERAL: Denies weakness SKIN: No bruising, hair changes or rashes. EYES: No blurred, double or loss of vision. NOSE AND THROAT: No history of nosebleeds, hoarseness or sore throat. HEART: No history of palpitations, chest pain or shortness of breath on exertion. LUNGS: Denies cough, hemoptysis, wheezing or shortness of breath. GASTROINTESTINAL: Denies changes in appetite, nausea, vomiting, diarrhea or constipation. GENITOURINARY: No history of frequency, urgency, hesitancy or nocturia. NEUROLOGIC: Denies history of numbness, tingling, or tremor. PSYCHIATRIC: No history of panic, anxiety or depression. ENDOCRINE: No history of heat or cold intolerance, polyuria or polydipsia. EXTREMITIES: Left knee pain and redness Physical Exam: Vital Signs: Vital Signs Date Time Temp Pulse Resp B/P (MAP) Pulse Ox O2 Delivery O2 Flow Rate FiO2 12/31/20 14:12 75 127/77 (94) 97 Room Air 12/31/20 10:52 99.4 18 99.4 Physcial Exam: General: Well developed, well nourished, no acute distress, well appearing HEENT: Pupils equally round and reactive to light, EOMI, no discharge, normal conjunctiva Neck: Supple, no nuchal rigidity, no JVD, trachea midline, no tenderness Cardiac: RRR, no murmurs, no gallops, no rubs Chest/Lungs: CTAB, no wheeze, no rhonchi, no crackles Abdomen: soft, non-distended, no guarding, no peritoneal signs, non-tender Back: No tenderness Extremities: Left knee mild tenderness. There is redness tracking down from the knee to the ankle. +1 pedal edema. Limited range of motion due to pain Neuro: Alert and oriented x 4, no focal deficits, normal speech Labs: Labs: Laboratory Tests Test 12/31/20 12:06 White Blood Count 10.2 x10^3/uL (4.0-11.0) Red Blood Count 4.44 x10^6/uL (4.30-5.70) Hemoglobin 13.7 g/dL (13.0-17.5) Hematocrit 38.6 % (39.0-53.0) Mean Corpuscular Volume 87 fL (79-100) Mean Corpuscular Hemoglobin 31 pg (25-35) Mean Corpuscular Hemoglobin Concent 36 g/dL (31-37) Red Cell Distribution Width 13.9 % (11.5-14.5) Platelet Count 107 x10^3/uL (140-400) Neutrophils (%) (Auto) 83 % (31-73) Lymphocytes (%) (Auto) 11 % (24-48) Monocytes (%) (Auto) 6 % (0-9) Eosinophils (%) (Auto) 0 % (0-3) Basophils (%) (Auto) 0 % (0-3) Neutrophils # (Auto) 8.4 x10^3/uL (1.8-7.7) Lymphocytes # (Auto) 1.1 x10^3/uL (1.0-4.8) Monocytes # (Auto) 0.6 x10^3/uL (0.0-1.1) Eosinophils # (Auto) 0.0 x10^3/uL (0.0-0.7) Basophils # (Auto) 0.0 x10^3/uL (0.0-0.2) Erythrocyte Sedimentation Rate 20 (0-15) Sodium Level 140 mmol/L (136-145) Potassium Level 3.5 mmol/L (3.5-5.1) Chloride Level 103 mmol/L (98-107) Carbon Dioxide Level 26 mmol/L (21-32) Anion Gap 11 (6-14) Blood Urea Nitrogen 9 mg/dL (8-26) Creatinine 0.9 mg/dL (0.7-1.3) Estimated GFR (Cockcroft-Gault) 95.0 BUN/Creatinine Ratio 10 (6-20) Glucose Level 230 mg/dL (70-99) Lactic Acid Level 1.2 mmol/L (0.4-2.0) Calcium Level 8.9 mg/dL (8.5-10.1) Total Bilirubin 0.6 mg/dL (0.2-1.0) Aspartate Amino Transf (AST/SGOT) 13 U/L (15-37) Alanine Aminotransferase (ALT/SGPT) 30 U/L (16-63) Alkaline Phosphatase 61 U/L (46-116) C-Reactive Protein, Quantitative 164.0 mg/L (0-3.3) Total Protein 7.3 g/dL (6.4-8.2) Albumin 3.6 g/dL (3.4-5.0) Albumin/Globulin Ratio 1.0 (1.0-1.7) Laboratory Tests Test 12/31/20 12:06 White Blood Count 10.2 x10^3/uL (4.0-11.0) Red Blood Count 4.44 x10^6/uL (4.30-5.70) Hemoglobin 13.7 g/dL (13.0-17.5) Hematocrit 38.6 % (39.0-53.0) Mean Corpuscular Volume 87 fL (79-100) Mean Corpuscular Hemoglobin 31 pg (25-35) Mean Corpuscular Hemoglobin Concent 36 g/dL (31-37) Red Cell Distribution Width 13.9 % (11.5-14.5) Platelet Count 107 x10^3/uL (140-400) Neutrophils (%) (Auto) 83 % (31-73) Lymphocytes (%) (Auto) 11 % (24-48) Monocytes (%) (Auto) 6 % (0-9) Eosinophils (%) (Auto) 0 % (0-3) Basophils (%) (Auto) 0 % (0-3) Neutrophils # (Auto) 8.4 x10^3/uL (1.8-7.7) Lymphocytes # (Auto) 1.1 x10^3/uL (1.0-4.8) Monocytes # (Auto) 0.6 x10^3/uL (0.0-1.1) Eosinophils # (Auto) 0.0 x10^3/uL (0.0-0.7) Basophils # (Auto) 0.0 x10^3/uL (0.0-0.2) Erythrocyte Sedimentation Rate 20 (0-15) Sodium Level 140 mmol/L (136-145) Potassium Level 3.5 mmol/L (3.5-5.1) Chloride Level 103 mmol/L (98-107) Carbon Dioxide Level 26 mmol/L (21-32) Anion Gap 11 (6-14) Blood Urea Nitrogen 9 mg/dL (8-26) Creatinine 0.9 mg/dL (0.7-1.3) Estimated GFR (Cockcroft-Gault) 95.0 BUN/Creatinine Ratio 10 (6-20) Glucose Level 230 mg/dL (70-99) Lactic Acid Level 1.2 mmol/L (0.4-2.0) Calcium Level 8.9 mg/dL (8.5-10.1) Total Bilirubin 0.6 mg/dL (0.2-1.0) Aspartate Amino Transf (AST/SGOT) 13 U/L (15-37) Alanine Aminotransferase (ALT/SGPT) 30 U/L (16-63) Alkaline Phosphatase 61 U/L (46-116) C-Reactive Protein, Quantitative 164.0 mg/L (0-3.3) Total Protein 7.3 g/dL (6.4-8.2) Albumin 3.6 g/dL (3.4-5.0) Albumin/Globulin Ratio 1.0 (1.0-1.7) Images: Images PROCEDURE: KNEE LEFT 4V INDICATION: Reason: pain redness / Spl. Instructions: / History: COMPARISON: None. IMPRESSION: Left knee: 4 views obtained. There is some soft tissue swelling including in the prepatellar region as well as anterior to the patellar tendon. No acute fracture or dislocation. Mild edema at Hoffa's fat pad. PROCEDURE: VENOUS LOWER EXTREMITY LEFT Left Lower Extremity Venous Doppler: Reason for examination: Left lower extremity swelling and redness. The left lower extremity venous system was evaluated from the common femoral and greater saphenous veins distally to the calf veins with grayscale imaging, color-flow imaging and spectral analysis. There is normal blood flow without deep venous thrombosis. There is normal response of the venous systems to compression and augmentation. Impression: No deep venous thrombosis in the left lower extremity venous system. Assessment/Plan Assessment/Plan Acute left lower extremity cellulitis Hyperglycemia, possible new onset diabetes Obesity class I Admit to hospitalist for further management Orthopedic consult Continue empiric IV antibiotics Pending blood cultures Pending hemoglobin A1c RISS and Accu-Cheks SCD and ambulation for DVT prophylaxis ADA diet Full code Discussed with RN and SW Disposition inpatient management as above Surrogate decision maker is Justifications for Admission Other Justification Left lower extremity cellulitis DOLORES MARKHAM MD Dec 31, 2020 14:52
--- NOTE | 2020-12-31 15:28 | NUR ---
Pharmacy Vancomycin Dosing Note S:Consulted to monitor and dose vancomycin started 12/31/20. O:SABINO CASTILLO is a 35 year old M with Cellulitis . Height: 5 feet, 4 inches Weight: 84.0 kg [place] Body Weight: 59.20 Adjusted Body Weight: 69.12 Dosing Weight: Actual Other Antibiotics: zosyn LABS: Last BUN: 9 Last Creatinine: 0.9 Creatinine Clearance: >100 mL/min Last WBC: 10.2 Last Procalcitonin: -- Tmax (past 24 hours): 99.4 Last dose given 12/31/20 at 1441 Vancomycin Dosing: Loading Dose: 2000 mg x1 Dosing Weight: Actual Target Trough: 10-20 A: Based on: patient's age, weight and renal function. P: 1. Begin Vancomycin 1000 mg IV q8h. 2. Follow up Trough level on 01/01/21 at 1500. 3. Pharmacy will continue to monitor, follow and adjust therapy as needed. [facility], 12/31/20 [id number]
--- NOTE | 2020-12-31 16:11 | NUR ---
Patient arrived to unit at approximately 1605. Patient orientated to unit and room.
[2020-12-31] MEDS: INSULIN LISPRO 300 UNITS/3 ML VIAL. SQ SCH (17:00)
[2020-12-31] MEDS: PIPERACILLIN/TAZOBACTAM 3.375 GM in IV NORMAL SALINE 50ML 50 ML IV SCH (18:39)
[2020-12-31 19:30] VITALS: BP 126/77
[2020-12-31] MEDS: VANCOMYCIN 1 GM in IV NORMAL SALINE 250ML 250 ML IV SCH (23:00)
[2020-12-31 23:23] VITALS: BP 148/78
[2021-01-01] MEDS: PIPERACILLIN/TAZOBACTAM 3.375 GM in IV NORMAL SALINE 50ML 50 ML IV SCH ×3 (02:03→12:12)
[2021-01-01 03:57] VITALS: BP 128/82
[2021-01-01 07:00] VITALS: BP 127/81
[2021-01-01] MEDS: INSULIN LISPRO 300 UNITS/3 ML VIAL. SQ SCH ×2 (08:00→12:00)
[2021-01-01] MEDS: VANCOMYCIN 1 GM in IV NORMAL SALINE 250ML 250 ML IV SCH ×2 (08:09→14:36)
[2021-01-01 09:40] LABS: BASO % 0 % (0-3); EOS # 0.1 x10^3/uL (0.0-0.7); EOS % 1 % (0-3); HEMATOCRIT 36.9 % (39.0-53.0); HEMOGLOBIN 12.8 g/dL (13.0-17.5); LYMPH % 14 % (24-48); MEAN CORPUSCULAR HEMOGLOBIN 31 pg (25-35); MEAN CORPUSCULAR HGB CONC 35 g/dL (31-37); MEAN CORPUSCULAR VOLUME 88 fL (79-100); MONO # 0.6 x10^3/uL (0.0-1.1); MONO % 8 % (0-9); NEUT # 5.8 x10^3/uL (1.8-7.7); NEUT % 77 % (31-73); PLATELET COUNT 101 x10^3/uL (140-400); RED CELL DISTRIBUTION WIDTH 13.8 % (11.5-14.5); WHITE BLOOD COUNT 7.5 x10^3/uL (4.0-11.0)
[2021-01-01 09:44] LABS: CREATININE 0.8 mg/dL (0.7-1.3); GFR 108.8; MAGNESIUM 1.7 mg/dL (1.8-2.4); PHOSPHORUS 2.7 mg/dL (2.6-4.7); POTASSIUM 3.8 mmol/L (3.5-5.1)
[2021-01-01 11:00] VITALS: BP 125/76
[2021-01-01] MEDS ORDERED: CEPH500C PO (13:31)
--- NOTE | 2021-01-01 13:35 | PDOC3 ---
[facility]-Discharge Summary Date of Admission: Date of Admission: Dec 31, 2020 Date of Discharge: Date of Discharge: Jan 01, 2021 Admission Diagnosis: Problems: (1) Cellulitis of left knee Discharge Diagnosis: Discharge Diagnosis: Cellulitis Hospital Course: Hospital Course: 35-year-old male with no significant known past medical history who presents with left knee pain that started on Saturday and the redness that started last night. Patient states denies any trauma or falls. He has never had any incident like this before. The pain is focused in the anterior patellar region. There are no deformities or swelling that he claims. However there is swelling and redness that tracks down from the knee down to the ankles. Of note, patient states that he did bump his knee on a trampoline several years back. 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 He was on his knees a lot for his job without any wearing kneepads. However he has not worked that job for a long time. Denies fevers, chest pain, diarrhea, dysuria or abdominal pains. 01/01/21 Patient seen and examined at bedside. He reports feeling better and that his pain is well controlled. Left knee is still pretty erythematous will do outpatient antibiotics with Keflex for 10 days. He desires to discharge today. Recommending he also follows up with PCP and orthopedics. Disposition: Disposition/Orders: D/C to Home Activity: Activity: Resume previous activity Diet: Diet: Regular Medications: Home Meds Active Scripts Cephalexin (CEPHALEXIN) 500 Mg Capsule, 1 CAP PO BID for cellulitis for 10 Days, #20 CAP Prov:JESSICA THOMAS MD 01/01/21 Hydrocodone Bit/Acetaminophen (HYDROCODONE-APAP 5-325 ) 1 Tab Tablet, 1 TAB PO PRN Q6HRS PRN for PAIN for 3 Days, #10 TAB 0 Refills Prov:ALFRED JIMENEZ APRN 10/17/20 Discontinued Scripts Sulfamethoxazole/Trimethoprim (BACTRIM DS TABLET) 1 Each Tablet, 1 TAB PO BID for 10 Days, #20 TAB 0 Refills Prov:ALFRED JIMENEZ APRN 10/17/20 Cephalexin (CEPHALEXIN) 500 Mg Tablet, 1 TAB PO QID, #40 TAB 0 Refills Prov:ALFRED JIMENEZ METAL TURNER 10/17/20 Cephalexin (CEPHALEXIN) 500 Mg Tablet, 1 TAB PO QID for SKIN INFECTION for 7 Days, #28 TAB 0 Refills Prov:VIK GARCIA METAL TURNER 09/21/20 Scheduled Cephalexin (Cephalexin), 1 CAP PO BID Scheduled PRN Hydrocodone Bit/Acetaminophen (Hydrocodone-Apap 5-325 ), 1 TAB PO PRN Q6HRS PRN for PAIN Discontinued Medications Cephalexin (Cephalexin), 1 TAB PO QID Cephalexin (Cephalexin), 1 TAB PO QID Sulfamethoxazole/Trimethoprim (Bactrim Ds Tablet), 1 TAB PO BID Justicifation of Admission Dx: Justifications for Admission: Justification of Admission Dx: Yes JESSICA THOMAS MD Jan 01, 2021 13:35
[2021-01-01 14:55] VITALS: BP 143/85
--- NOTE | 2021-01-01 15:49 | NUR ---
Patient discharged home with self care. Patient verbalized understanding of discharge instructions.
[2021-01-02 06:08] LABS: HEMOGLOBIN A1C 6.1 % (4.8-5.6)
== END 2021-01-01 15:55 | disposition home or self-care (01) | DRG 603 ==
LOC: ER 10:42 → 4 NORTH 15:14
PROVIDERS: ADMIT Internal Medicine; ATTEND Internal Medicine
DX: L03.116 Cellulitis of left lower limb (principal); E66.9 Obesity, unspecified; Z79.899 Other long term (current) drug therapy; Z20.822 Contact with and (suspected) exposure to COVID-19; Z68.31 Body mass index [BMI] 31.0-31.9, adult; E11.65 Type 2 diabetes mellitus with hyperglycemia
CPT/HCPCS: 36415; 73564; 80048; 80053; 82962; 83036; 83605; 83735; 84100; 84145; 85025; 85651; 86140; 87040; 87426; 93971; J2543; J3370; J7030; J7040; J7050; U0003; U0005; 99285-25; G0378

== ENCOUNTER 2021-02-27 19:37 | Emergency (ER) | payer SELFPAY ==
[~2021-02-27] VITALS: Ht 162.6 cm; Wt 85.0 kg
[~2021-02-27 19:37] MED LIST changes: +CEPH500C PO
[2021-02-27 20:55] VITALS: BP 152/96
[2021-02-27] MEDS ORDERED: KETO5DRO4 LEFTEYE (22:21)
[2021-02-27] MEDS ORDERED: PRED50TA PO (22:21)
[2021-02-27] MEDS ORDERED: CETI10TA74 PO (22:21)
--- NOTE | 2021-02-27 22:22 | PHYS DOC ---
Past Medical History Past Medical History: No Pertinent History Past Surgical History: No Surgical History Smoking Status: Never Smoker Alcohol Use: Occasionally General Adult EDM: Chief Complaint: EYE PROBLEMS HPI: HPI: Patient is a 35 year old male who presents to the ED today with left eye redness, swelling, pain and irritation, symptoms began 3 days ago. Patient states he believes he got bit by something in his house. Patient denies any vision loss. Denies any fever. Review of Systems: Review of Systems: Constitutional: Denies fever or chills. [] Eyes: Reports left eye redness, swelling, drainage, denies change in visual acuity. [] Musculoskeletal: Denies back pain or joint pain. [] Integument: Denies rash. [] Neurologic: Denies headache, focal weakness or sensory changes. [] Psychiatric: Denies depression or anxiety. [] Heart Score: C/O Chest Pain: N/A Risk Factors: Risk Factors: DM, Current or recent (<one month) smoker, HTN, HLP, family history of CAD, obesity. Risk Scores: Score 0 - 3: 2.5% MACE over next 6 weeks - Discharge Home Score 4 - 6: 20.3% MACE over next 6 weeks - Admit for Clinical Observation Score 7 - 10: 72.7% MACE over next 6 weeks - Early Invasive Strategies Allergies: Allergies: Allergies Coded Allergies Type Severity Reaction Last Updated Verified No Known Drug Allergies 10/22/19 No Physical Exam: PE: Constitutional: Well developed, well nourished, no acute distress, non-toxic appearance. [] HENT: Normocephalic, atraumatic, bilateral external ears normal, oropharynx moist, no oral exudates, nose normal. [] Eyes: PERRLA, EOMI, left conjunctive is mildly injected, left eyelid are swollen and erythematous. Clear drainage noted to the left eye Skin: Warm, dry, no erythema, no rash. [] Back: No tenderness, no CVA tenderness. [] Extremities: No tenderness, no cyanosis, no clubbing, ROM intact, no edema. [] Neurologic: Alert and oriented X 3, normal motor function, normal sensory function, no focal deficits noted. [] Psychologic: Affect normal, judgement normal, mood normal. [] Current Patient Data: Vital Signs: Vital Signs Date Time Temp Pulse Resp B/P (MAP) Pulse Ox O2 Delivery O2 Flow Rate FiO2 02/27/21 20:55 98.4 77 18 152/96 (114) 96 98.4 02/27/21 20:52 Room Air EKG: EKG: [] Radiology/Procedures: Radiology/Procedures: [] Course & Med Decision Making: Course & Med Decision Making Pertinent Labs and Imaging studies reviewed. (See chart for details) This is a 35-year-old male patient presenting to the ED today with left upper eyelid swelling, left eye redness, drainage and pain, symptoms began 3 days ago, he believes he got bit by something. Left upper eyelid is swollen suspicious of an insect bite, conjunctive are slightly erythematous but clear drainage. Patient was discharged on Zyrtec, Zaditor and prednisone for 5 days. Follow-up with PCP in 1 week or the provided assistant front end manager Manuelito Disclaimer: Manuelito Disclaimer: This electronic medical record was generated, in whole or in part, using a voice recognition dictation system. Departure Departure Impression: Primary Impression: Insect bite of eyelid Qualified Codes: S00.262A - Insect bite (nonvenomous) of left eyelid and periocular area, initial encounter; W57.XXXA - Bitten or stung by nonvenomous insect and other nonvenomous arthropods, initial encounter Disposition: 01 HOME / SELF CARE / HOMELESS Condition: STABLE Referrals: NO PCP (PCP) RENEE PETERSON MD follow up in 1-2 weeks Patient Instructions: Insect Bite, [id number] Additional Instructions: You were seen for an insect bite to the left upper eyelid. Use the prescribed medications as ordered. Follow-up with an assistant front end manager or your own doctor in 1 to 2 weeks Scripts Prednisone (PREDNISONE) 50 Mg Tablet 1 TAB PO DAILY, #5 TAB Prov: EVAFLOYDAzebNORTH Lucia FLOORLEADER 02/27/21 Cetirizine Hcl (ZYRTEC) 10 Mg Tablet 1 TAB PO DAILY, #30 TAB 2 Refills Prov: EVAPASCALENORTH Lucia FLOORLEADER 02/27/21 Ketotifen Fumarate (ZADITOR) 5 Ml Drops 1 DROP LEFTEYE BID, #5 ML 1 Refill Prov: KIANANORTH Lucia FLOORLEADER 02/27/21 KIANANORTH Lucia HERNANDEZN Feb 27, 2021 22:22
== END 2021-02-27 22:30 | disposition home or self-care (01) ==
LOC: ER 19:37
DX: S00.262A Insect bite (nonvenomous) of left eyelid and periocular area, initial encounter (principal); W57.XXXA Bitten or stung by nonvenomous insect and other nonvenomous arthropods, initial encounter; Y93.89 Activity, other specified; Y92.89 Other specified places as the place of occurrence of the external cause; Y99.8 Other external cause status
CPT/HCPCS: 99283